=== PATIENT | female | born 1970 ===

== ENCOUNTER 2017-02-06 10:21 | Day surgery (SDC) | payer BC ==
[2017-01-29 12:45] VITALS: BMI 22.4
[2017-02-06] MEDS ORDERED: Bupivacaine-Epi 0.25%-1:200,000 PF Inj ONE (16:22)
[2017-02-06] MEDS ORDERED: ceFAZolin IV 1 gm in Dextrose 1 GM/50 ML BAG IVPB ONE (16:22)
[2017-02-06] MEDS ORDERED: Lidocaine 1% Inj (20ml) ONE (16:22)
[2017-02-06] MEDS ORDERED: Lactated Ringer's 1,000 ML IV ONE (16:37)
[2017-02-06] MEDS ORDERED: Midazolam 2 MG/2 ML VIAL ONE (16:41)
[2017-02-06] MEDS ORDERED: Propofol 10 mg/ml Inj (20 ML) ONE (16:41)
[2017-02-06] MEDS ORDERED: HYDROmorphone 0.5 mg/0.5 ml ISec IVP PRN (17:41)
--- NOTE | 2017-02-06 17:42 | PCM.SURG1 ---
Surgeon's Initial Post Op Note - Surgeon's Notes Surgeon: Dr. Sylvester Leaf Blender: Dr. Cuevas PGY2, Kayla Chin Type of Anesthesia: MAC, IV Sedation Pre-Operative Diagnosis: enlarged R inguinal lymph node Operative Findings: see dictation Post-Operative Diagnosis: R femoral hernia Operation Performed: R femoral hernia repair w/ mesh Specimen/Specimens Removed: femoral hernia sac Estimated Blood Loss: EBL {In ML}: 5 Blood Products Given: N/A Drains Used: No Drains Post-Op Condition: Good Date of Surgery/Procedure: 02/06/17 Time of Surgery/Procedure: 17:00
[2017-02-06 19:35] VITALS: BP 104/71; PULSE 58; RESP 8; TEMP 97.5; O2SAT 100
--- NOTE | 2017-02-09 05:17 | OP ---
PROCEDURE DATE: 02/06/2017 PREOPERATIVE DIAGNOSIS: Right inguinal lymph node enlargement, possible femoral hernia. POSTOPERATIVE DIAGNOSIS: Right femoral hernia. PROCEDURE: Right femoral hernia repair with mesh. SURGEON: Michele Sylvester MD PROJECT MANAGEMENT: Sharon Cuevas, PGY-2 resident SECOND PROJECT MANAGEMENT: PABLITO Saunders TYPE OF ANESTHESIA: General endotracheal tube anesthesia. ESTIMATED BLOOD LOSS: Around 10 mL. DRAINS: None. PATHOLOGY: The hernial content and sac was sent for the pathology. COMPLICATIONS: None. INTRAOPERATIVE FINDINGS: The patient had right femoral hernia with very small neck. DESCRIPTION OF PROCEDURE: On intraoperative steps, this 46-year-old female who was diagnosed with enlarged right femoral lymph node as well as possible right femoral hernia. The patient was consented for excision of the right inguinal lymph node, possible hernia repair, brought to the OR, and placed supine on the operating room table. After induction of the anesthesia, the right groin was prepped and draped in the usual sterile fashion. The transverse 4 cm incision was made up incising the skin and subcutaneous tissue. The palpable lump was dissected free from surrounding structure and it was hernial sac and now the right femoral vessels were identified and dissection was carried down up to the inguinal ligament and the sac was high ligated and resected and it was sent to the table for the pathology. The hernial sac was reduced back into the retroperitoneum and the defect was approximately 0.5 x 0.5 cm size and very small mesh plug was placed and mesh plug was sutured anteriorly to the inguinal ligament, medially to the pubic tubercle, laterally to inguinal ligament, and inferiorly to the loose areolar tissue and after proper fixation of the plug, the fascia was sutured on top of the repair and subcutaneous with 3-0 Vicryl, skin with 4-0 Monocryl and dry sterile dressing was applied. The patient tolerated the procedure well. Count of the instrument and gauze was correct. There was no apparent complication. The patient was reversed from sedation and sent to the postanesthesia care unit in stable condition. Michele Sylvester MD [email or web address]
== END 2017-02-06 20:25 | disposition home or self-care (01) ==
LOC: C.SDS 10:21
PROVIDERS: ATTEND Surgery Surgical Critical Care
DX: K41.90 Unilateral femoral hernia, without obstruction or gangrene, not specified as recurrent (principal)
CPT/HCPCS: 36415; 49553; 84702; J0690; J1170; J1885; J2250; J2405; J2704; J3010; J7120